=== PATIENT | male | born 1995 | race Caucasian/White ===

== ENCOUNTER 2024-01-11 09:29 | Emergency (ER) | payer OTHER ==
[~2024-01-11] VITALS: Ht 182.9 cm; Wt 98.9 kg
[2024-01-11] MEDS: TETRACAINE 0.5% 4 ML OPHTHALMIC DROPS EACHEYE ONE (09:56)
[2024-01-11 10:05] VITALS: TEMP 99.1
[2024-01-11] MEDS ORDERED: CIPR2.5D21 EACHEYE (10:47)
[2024-01-11 11:10] VITALS: BP 135/79; PULSE 82; RESP 18; O2SAT 99
== END 2024-01-11 11:13 | disposition home or self-care (01) ==
LOC: ER 09:29
DX: T15.12XA Foreign body in conjunctival sac, left eye, initial encounter (principal); T15.11XA Foreign body in conjunctival sac, right eye, initial encounter; Z77.098 Contact with and (suspected) exposure to other hazardous, chiefly nonmedicinal, chemicals
CPT/HCPCS: 99282; 99283; 99284

== ENCOUNTER 2024-11-07 17:18 | Emergency (ER) | payer OTHER ==
[~2024-11-07] VITALS: Ht 185.4 cm; Wt 86.0 kg
[2024-11-07] MEDS: normal saline 1000ML IV soln IVB ONE ×2 (20:02→22:24)
[2024-11-07 20:04] LABS: BASOPHILS % (AUTO) 0.4 % (0-1); EOSINOPHILS # (AUTO) 0.3 X10'3 (0-0.9); EOSINOPHILS % (AUTO) 2.6 % (0-6); HEMATOCRIT 44.9 % (42.0-52.0); HEMOGLOBIN 15.2 g/dl (14.0-17.9); LYMPHOCYTES # (AUTO) 1.6 X10'3 (1.1-4.8); LYMPHOCYTES % (AUTO) 14.9 % (21-51); MEAN CORPUSCULAR HEMOGLOBIN 28.8 PG (27.0-31.0); MEAN CORPUSCULAR HGB CONC 33.8 g/dL (33.0-36.5); MEAN CORPUSCULAR VOLUME 85.2 FL (78-98); MEAN PLATELET VOLUME 8.3 FL (7.4-10.4); MONOCYTES # (AUTO) 1.2 X10'3 (0-0.9); MONOCYTES % (AUTO) 10.4 % (2-12); NEUTROPHILS # (AUTO) 7.9 X10'3 (1.8-7.7); NEUTROPHILS % (AUTO) 71.7 % (42-75); PLATELET COUNT 275 X10'3 (140-440); RED BLOOD COUNT 5.27 X10'6 (4.70-6.10); RED CELL DISTRIBUTION WIDTH 13.9 % (11.5-14.5); WHITE BLOOD COUNT 11.1 X10'3 (4.5-11.0)
[2024-11-07 20:08] LABS: GLUCOSE 86 MG/DL (70-104)
[2024-11-07 20:09] LABS: ALBUMIN 4.2 G/DL (3.4-5.0); ANION GAP 4 (8-16); BLOOD UREA NITROGEN 10 MG/DL (7-18); BUN/CREATININE RATIO 11.6 (10.0-20.0); CALCIUM 8.8 MG/DL (8.5-10.1); CHLORIDE 104 MMOL/L (99-107); CREATININE 0.86 MG/DL (0.60-1.10); POTASSIUM 3.8 MMOL/L (3.5-5.1); SODIUM 139 MMOL/L (135-145); TOTAL CARBON DIOXIDE 30.6 MMOL/L (24-32); eCRCL 141 ML/MIN; eGFR > 90 ML/MIN
[2024-11-07 20:11] LABS: ETHANOL < 10 MG/DL (<10)
--- NOTE | 2024-11-07 20:45 | RADIOLOGY REPORT ---
CLINICAL HISTORY: aloc TECHNIQUE: Helical imaging carried out from skull base to vertex without intravenous contrast. This e xam was performed according to our departmental dose optimization program. Up-to-date CT equipment an d radiation dose reduction techniques are utilized as appropriate. CTDIVol: 0.14 + 59.1 mGy DLP: 1115.05 mGy-cm WID: COMPARISON: None FINDINGS: The ventricles and subarachnoid spaces are normal in size and configuration. There is no midline kaylene ft or mass effect. The ruby white matter interfaces are maintained. The basal cisterns are patent. Th ere is no evidence of acute intracranial hemorrhage or extra-axial fluid collection. The mastoid air cells and visualized paranasal sinuses are well-aerated aside from mucous retention cysts or polyps i n the bilateral maxillary sinuses. IMPRESSION: No acute intracranial abnormality.
--- NOTE | 2024-11-07 21:47 | Physician Documentation ---
History of Present Illness ~ Chief Complaint: Headache Stated Complaint: "I HAVE LESS FEELING ON MY RIGHT SIDE" Time Seen by MD: 19:42 OK to notify your PCP?: Yes Source: patient, RN/MD, RN notes reviewed, old records Mode of Arrival: POV Exam Limitations: no limitations HPI 29 year old male with a history of migraines presents to the emergency room for complaints of an ocular migraine that happened yesterday. He states that his migraines are triggered by stress, fatigue, or bright lights. He states he has approximately 5 migraines a month. He states that he takes ibuprofen for his migraines and has not seen a primary care provider for them. Of note he had visited the [facility] today and was told he had less sensation on his right side compared to his left. Medication Reconciliation Allergies: Coded Allergies: No Known Allergies (Unverified , 01/11/24) Past Medical History Past Medical History: Migraine, Depression Past Surgical History: orthopedic surgeries, other Smoking Status: Never smoker Alcohol Use: Occasionally Drug Use: marijuana Review of Systems All Other Systems at this time: Reviewed and Negative ROS As stated above in the HPI, otherwise all systems are reviewed and negative. Physical Exam Vital Signs: RN Vital Signs have been reviewed: Yes, Temperature: 97.8, Source: Temporal, Heart Rate: 84, Respiratory Rate: 16, BP: 165/87, Pulse Oximetry: 99, Weight: 86.050 Pulse Oximetry Reflects: adequate oxygenation Physical Exam General: The patient is well developed, well nourished, nontoxic appearing and is in no acute distress. Skin: [place], warm and dry with no rashes. HEENT: Head was normocephalic and atraumatic. Eyes - pupils equal, round, reactive to light and accommodation. Extraocular movements were intact. Conjunctivae were nonicteric. Ears - bilateral tympanic membranes were normal. The mouth and oropharynx were clear with moist mucous membranes. There were no pharyngeal exudates or erythema. Neck: Supple and nontender. There was no jugular venous distention, lymphadenopathy, thyromegaly or masses. Chest: Clear to auscultation bilaterally without wheezes, rales or rhonchi. No accessory muscle use. No dullness to percussion. Heart: Rate regular and rhythmic. S1, S2. No murmurs. Palpation of the chest wall was normal. No rubs or thrills. Abdomen: Soft, nontender and nondistended. Positive bowel sounds. No guarding or rebound. No hepatosplenomegaly or palpable masses. Extremities: No cyanosis, clubbing or edema. The patient moves all extremities. Pulses were equal and symmetric. Neurologic: Cranial nerves II-XII were intact. Sensation was intact to light touch throughout. Motor strength was 5/5 in all four extremities. Deep tendon reflexes were intact in both upper and lower extremities. Psychologic: The patient was oriented to person, place and time. The patient demonstrated appropriate judgement and insight. Progress Results/Orders Reviewed/noted all lab results: Yes Results/Orders Orders - PERRY WILLIS MD Ct Head (11/07/24 20:00) Completed Orders - PERRY WILLIS MD Cbc/Diff (11/07/24 19:41) Ct Head (11/07/24 20:00) Ethanol (11/07/24 19:41) Drug Screen, Urine (11/07/24 19:41) Normal Saline 1000ml (Sodium Chloride 10 (11/07/24 19:45) BMP (11/07/24 19:41) Prochlorperazine Inj (Compazine Inj) (11/07/24 21:55) Morphine 2mg/Ml Inj. (Morphine Inj.) (11/07/24 21:55) Normal Saline 1000ml (Sodium Chloride 10 (11/07/24 21:55) Dexamethasone Inj (Decadron 10mg/Ml Inj) (11/07/24 21:55) Sumatriptan Succ. Inj. (Imitrex 6mg Inj. (11/07/24 21:55) Ua W/Microscopic, Cult If Ind (11/07/24 21:58) Vital Signs 11/07/24 11/07/24 11/07/24 11/07/24 17:27 19:42 22:39 23:26 Temp 97.8 97.6 Pulse 84 70 70 Resp 18 16 16 18 B/P (MAP) 165/87 134/95 (108) 132/80 Pulse Ox 99 99 99 O2 Flow Rate 0 Laboratory Tests Test 11/07/24 19:50 11/07/24 21:58 White Blood Count 11.1 H Red Blood Count 5.27 Hemoglobin 15.2 Hematocrit 44.9 Mean Corpuscular Volume 85.2 Mean Corpuscular Hemoglobin 28.8 Mean Corpuscular Hemoglobin Concent 33.8 Red Cell Distribution Width 13.9 Platelet Count 275 Mean Platelet Volume 8.3 Neutrophils (%) (Auto) 71.7 Lymphocytes (%) (Auto) 14.9 L Monocytes (%) (Auto) 10.4 Eosinophils (%) (Auto) 2.6 Basophils (%) (Auto) 0.4 Neutrophils # (Auto) 7.9 H Lymphocytes # (Auto) 1.6 Monocytes # (Auto) 1.2 H Eosinophils # (Auto) 0.3 Basophils # (Auto) 0.0 CBC Comment Sodium Level 139 Potassium Level 3.8 Chloride Level 104 Carbon Dioxide Level 30.6 Anion Gap 4 L Blood Urea Nitrogen 10 Creatinine 0.86 Estimated GFR/1.73 m2 > 90 BUN/Creatinine Ratio 11.6 Glucose Level 86 Calcium Level 8.8 Albumin 4.2 Chemistry Comments Ethyl Alcohol Level < 10 Urine Specimen Description Cln catch midstream Urine Color Yellow Urine Clarity Clear Urine pH 6.0 Urine Specific [place] 1.020 Urine Protein Negative Urine Glucose (UA) Negative Urine Ketones Negative Urine Occult Blood Trace-intact Urine Nitrite Negative Urine Bilirubin Negative Urine Urobilinogen 0.2 Urine Leukocyte Esterase Negative Urine RBC 0-2 Urine WBC 0-4 Urine Squamous Epithelial Cells None seen Urine Bacteria None seen Urine Mucus None seen Urine Culture Indicated Not ind Volume Urine Centrifuged 10 ml Urine Comment Urine Opiates Screen Negative Urine Methadone Screen Negative Urine Fentanyl Screen Negative Urine Barbiturates Screen Negative Urine Phencyclidine Screen Negative Urine Amphetamines Screen Negative Urine Benzodiazepines Screen Negative Urine Cocaine Screen Positive Urine Cannabinoids Screen Positive Drug Screen Comment Re-Evaluation Re-Evaluation : Re-Evaluation: Improved Progress Patient was seen and examined. Patient was given reassurance. Patient was complaining headaches. Patient received Imitrex Decadron fluid boluses Compazine as well as some morphine. Patient states headache is basically resolved feeling much better and ultimately was discharged home. Patient's headache was a bit atypical. Patient's CAT scan was obtained and was reassuring. CBC showed a slight leukocytosis with a WBC of 11.1 without any left shift no anemia chemistry was within normal limits tox screen was positive for THC and cocaine. Urinalysis is within normal limits. Patient was then discharged home. Continuous campus monitor interpretation shows normal sinus rhythm heart rate 80s, no ectopy, normal, my interpretation. Pulse oximetry monitor interpretation shows normal oxygenation 99% room air. Normal my interpretation. EKG/XRAY/CT/US/VASC/MRI CT : Impression CLINICAL HISTORY: aloc TECHNIQUE: Helical imaging carried out from skull base to vertex without in travenous contrast. This exam was performed according to our departmental dose optimization program. Up-to-date CT equipment and radiation dose reduction techniques are utilized as appropriate. CTDIVol: 0.14 + 59.1 mGy DLP: 1115.05 mGy-cm WID: COMPARISON: None FINDINGS: The ventricles and subarachnoid spaces are normal in size and configuration. There is no midline shift or mass effect. The ruby white matter interfaces are maintained. The basal cisterns are patent. There is no evidence of acute int racranial hemorrhage or extra-axial fluid collection. The mastoid air cells and visualized paranasal sinuses are well-aerated aside from mucous retention cysts or polyps in the bilateral maxillary sinuses. IMPRESSION: No acute intracranial abnormality. Electronically Signed by:AMADO ELLIS MD Date & Time: 11/07/242041 Medical Decision Making Additional info obtained from: old records Differential Dx:Considerations: Include: BUTLER-Cluster, BUTLER-Migraine, BUTLER- Hypertensive, BUTLER-Muscular contraction, BUTLER-Post lumbar puncture, Carbon monoxide toxicity, Close head injuyr, CVA, Mass lesion, Other Departure Disposition: 01 HOME / SELF CARE / HOMELESS Impression: Primary Impression: Ocular migraine Additional Impression: Cocaine abuse Condition: Stable Discharge Instructions: Chronic Migraine Headache, [id number] Referrals: NO PRIMARY CARE PROVIDER (PCP) Education Educated: Patient Educated regarding: diagnosis, prognosis, need for follow up, other Signature Scribe Signature: Scribed for Perry Willis MD by Daren Cutler . 11/07/24 22:12 Attestation: The note accurately reflects work and decisions made by me.Perry Willis MD 11/07/24 21:47 PERRY WILLIS MD Nov 07, 2024 21:47 DAREN MASCORRO Nov 07, 2024 22:12
[2024-11-07] MEDS ORDERED: morphine 2 MG/ML inj. syringe IV PRN (21:55)
[2024-11-07 22:08] LABS: BILIRUBIN,URINE NEGATIVE (Neg); CLARITY,URINE CLEAR (Clear); COLOR,URINE YELLOW (Yellow); GLUCOSE, URINE NEGATIVE (Neg); KETONES,URINE NEGATIVE (Neg); LEUKOCYTE ESTERASE ,URINE NEGATIVE (Neg); NITRITES, URINE NEGATIVE (Neg); OCCULT BLOOD,URINE TRACE-INTACT (Neg); PROTEIN,URINE NEGATIVE (Neg); UROBILINOGEN,URINE 0.2 E.U/dL (0.2-1.0)
[2024-11-07 22:17] LABS: URINE AMPHETAMINE SCREEN NEGATIVE (Neg); URINE BARBITUATE SCREEN NEGATIVE (Neg); URINE BENZODIAZEPINES SCREEN NEGATIVE (Neg); URINE CANNABINOID SCREEN POSITIVE (Neg); URINE COCAINE SCREEN POSITIVE (Neg); URINE METHADONE SCREEN NEGATIVE (Neg); URINE OPIATE SCREEN NEGATIVE (Neg); URINE PHENCYCLIDINE SCREEN NEGATIVE (Neg)
[2024-11-07 22:20] LABS: UA COLLECTION TYPE CLN CATCH MIDSTREAM
[2024-11-07] MEDS: dexamethasone sod phosphate 10mg/ml inj IV STA (22:24)
[2024-11-07] MEDS: SUMAtriptan succ. 6 MG/0.5ml vial SQ ONE (22:25)
[2024-11-07] MEDS: proCHLORperazine 10 MG/2 ml inj IV ONE (22:28)
[2024-11-07 22:30] LABS: BACTERIA,URINE NONE SEEN /HPF (Neg); MUCUS STRANDS NONE SEEN /LPF (Neg); RBC,URINE 0-2 /HPF (0-2); SQUAMOUS EPITHELIAL CELL,UR NONE SEEN /LPF (FEW); WBC,URINE 0-4 /HPF (0-4)
[2024-11-07 23:26] VITALS: BP 132/80; PULSE 70; RESP 18; TEMP 97.6; O2SAT 99
== END 2024-11-07 23:32 | disposition home or self-care (01) ==
LOC: ER 17:18
DX: G43.109 Migraine with aura, not intractable, without status migrainosus (principal); F14.10 Cocaine abuse, uncomplicated; F32.A Depression, unspecified; F12.90 Cannabis use, unspecified, uncomplicated; Z98.890 Other specified postprocedural states; Z72.89 Other problems related to lifestyle
CPT/HCPCS: 36415; 70450; 80048; 80305; 80320; 81001; 85025; 96361; 96372; 96374; 96375; 99285; J0780; J1100; J3030; J7030